=== PATIENT | male | born 1950 | race Caucasian/White ===

== ENCOUNTER 2017-12-24 10:43 | Outpatient (CLI) | payer OTHER ==
--- NOTE | 2017-12-26 13:44 | Ultrasound Report ---
Procedure Date: 12/24/2017 Accession Number: [id number] / [id number] Procedure: US - Testicle CPT Code: FULL RESULT: EXAM: Testicle DATE: 12/24/2017 12:00 PM CLINICAL HISTORY: RIGHT TESTICULAR PAIN COMPARISON: None. TECHNIQUE: Real-time scanning was performed with static images obtained, including color-flow. FINDINGS: Right: Testis: 4.2 x 2.8 x 2.6 cm. Normal size and echotexture. No mass, calcification, or abnormal blood flow. Epididymis: 1.5 x 0.9 x 0.8 cm. Normal size and echotexture. No mass or abnormal blood flow. Hydrocele: Small Varicocele: None. Left: Testis: 4.1 x 2.9 x 2.4 cm. Normal size and echotexture. No mass, calcification, or abnormal blood flow. Epididymis: 1.2 x 0.9 x 0.9 cm. There is a small left epididymal head cyst present. Hydrocele: Small Varicocele: None. IMPRESSION: Small bilateral hydroceles. No evidence of an intratesticular mass. [facility]
== END 2017-12-24 10:44 | disposition home or self-care (01) ==
LOC: DI 10:43
PROVIDERS: ATTEND Internal Medicine
DX: N43.3 Hydrocele, unspecified (principal)
CPT/HCPCS: 76870; 93975

== ENCOUNTER 2019-02-10 10:22 | Outpatient (CLI) | payer MEDICARE, OTHER ==
--- NOTE | 2019-02-11 15:49 | XRAY Report ---
Reason: CHRONIC R ANKLE PAIN Procedure Date: 02/10/2019 Accession Number: [id number] / [id number] Procedure: XR - Ankle 3 View RT CPT Code: FULL RESULT: EXAM: RIGHT ANKLE RADIOGRAPHY, 3 VIEWS EXAM DATE: 02/10/2019 10:43 AM. CLINICAL HISTORY: Chronic right ankle pain in a 69-year-old male. COMPARISON: None. TECHNIQUE: Standing AP, lateral and oblique views. FINDINGS: Bones: Minor hypertrophic changes medially and laterally. No fractures or bone lesions. Joints: Mild to moderate joint space narrowing in the ankle joint, more prominent laterally. No subluxation or joint effusion. Soft Tissues: Normal. No soft tissue swelling. 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 No acute process. RADIA
== END 2019-02-10 10:23 | disposition home or self-care (01) ==
LOC: DI 10:22
PROVIDERS: ATTEND Podiatrist
DX: M19.071 Primary osteoarthritis, right ankle and foot (principal)

== ENCOUNTER 2019-06-19 10:19 | Outpatient (CLI) | payer MEDICARE, OTHER ==
[2019-06-20 18:33] VITALS: BP 128/82
--- NOTE | 2019-06-20 18:33 | SLEEP CARE CONSULTATION ---
Information from patient questionnaire entered by Jo Ann Vera. I have reviewed and concur with the information entered by Jo Ann Vera. This document represents the service I personally performed and the decisions made by me, Dilia Mcwilliams MD, [facility]. History of Present Illness Reason for Visit: New patient, Previously diagnosed sleep apnea, sleep apnea on CPAP therapy (BIPAP) Chief Complaint: reports: Insomnia, Unrefreshed sleep, Snoring, Excessive daytime sleepiness, Observed pauses in breathing, Fatigue, Frequent awakenings at night, Other (BIPAP BROKEN) Duration of Symptoms: September 2012 Usual bedtime: 9 pm Time it takes to fall asleep: 30 mins Snores at night: Yes Observed to quit breathing while asleep: Yes Sleeps alone due to snoring: Yes Number of times waking at night: 3 Reasons for waking at night: reports: Snoring, Bathroom Toss, Turn, or Twitch while sleeping: Yes Recalls having dreams: Yes Usually gets out of bed at: 6:30 am Feels refreshed in the morning: No Morning headache: Yes (sometimes) Sleepy or fatigued during the day: Yes Ever fallen asleep while driving: No Takes day naps: Yes Dreams during day naps: No Prior sleep studies: Yes Year and Where: 2012 Additional HPI information: I had the pleasure of seeing Mr. Wellington along with his today regarding obstructive sleep apnea-hypopnea. As you know, he is a 69 year old gentleman who was diagnosed with the sleep-disordered breathing [facility] [place] in [facility]. The AHI was 44.8. He was first started on a BiPAP device. His current machine is a BiPAP ASV (S9 VPAP [employer]). He used the device only 4 times in the past 6 months. He wears a full face mask. He gets his supplies via the mail from the [facility] in [place]. He found the treatment beneficial when he used it regularly at first. - Parasomnia Symptoms Ever been unable to move upon waking from sleep: No Ever felt weak in the knees when startled or emotional: Yes Bothered by creepy, crawly, restless sensations in legs: Yes Problems with memory or concentration: Yes Subjective Initial [place] Sleepiness Scale score: 15 Past Medical History Past Medical History: reports: Hypertension, Arthritis, Anxiety, Asthma, D epression, Mood disorder, Other (COPD, PTSD, Binge eating, enlarged prostate, jaw surgery to advance mandible) Social History The patient's occupation is retired. Patient is and lives in [place]. Have you smoked in the past 12 months: No Quit date: 1968 Alcohol use: No Caffeine use: Yes Caffeine amount and frequency: 2 cups a day Family History Family history of sleep disordered breathing: Yes Family Hx Sleep Apnea: Sibling: Sleep apnea - Treated Allergies and Home Medications Drug allergies reviewed: Yes Home medication list reviewed: Yes Allergy and home medication list: Current Medications: fluoxetin, hydrochlorothiazide, loratadine, finasteride, lisinopril, vitamin D Allergies: no known drug allergies Review of Systems Cardiovascular: reports: high blood pressure, leg or foot swelling Respiratory: reports: wheeze Urinary: reports: urgency Neurological: denies: headaches, seizure, head trauma, disorientation, speech dy sfunction, gait or balance problems, fainting or unconsciousness, other Psychiatric: reports: anxiety, depression, mood disorder, other (PTSD) Ear/Nose/Throat: reports: nasal congestion, sinus problems, dry mouth/throat, tonsillectomy Endocrine: reports: sluggishness, too hot or cold, excessive thirst, increased appetite, increased urination Musculoskeletal: reports: joint pain, back pain, muscle pain or cramping Immunologic: reports: allergies to food or environment Physical Exam Vital signs obtained and entered by: Dr. Mcwilliams Blood Pressure: 128/82 Cuff size: regular Heart Rate: 66 O2 Saturation: 96 Height: 5 ft 8 in Weight: 266 lb Body Mass Index: 40.4 BMI Classification: Obesity Class 3 Neck circumference: 17.5 Mood/affect: normal HEENT: No craniofacial malformation Nostrils: patent to airflow Turbinates: normal Septum: midline Mouth and throat: narrow oropharynx Soft palate: long Hard palate: normal Uvula: normal Uvula visualization: 25% Mallampati Class III Tongue: normal in size Tonsils: absent bilaterally Chin and jaw: normal size and position Neck: normal w/o lymphadenopathy or thyromegaly Heart: regular rate and rhythm Lungs: clear bilaterally Abdomen: soft, non-tender Extremities: no edema or clubbing Neurologic: intact, no focal deficits Impression and Plan IMPRESSION: 1. Obstructive Sleep Apnea-Hypopnea Syndrome, severe, as previously diagnosed. The patient is not using the BiPAP much because the masks he has do not fit. Since [facility] the [place] [facility]. It is unclear also whether he actually need to be on a BiPAP ASV which is reserved for treatment of central and complex sleep apnea. Narrow oropharynx and obesity are common predisposing factors for obstructive sleep apnea-hypopnea syndrome. Untreated obstructive sleep apnea can also contribute to hypertension. Pathophysiology of sleep-disordered breathing was discussed. I recommend repeat the in-laboratory polysomnography and manual CPAP/BiPAP titration study. I informed the patient of what the sleep studies involve and after some discussion, he agreed to proceed. Plan: 1. Schedule polysomnography + manual CPAP/BiPAP titration study and return in 1 to weeks after the study to discuss result and initiate therapy. 2. Avoid long distance driving or when feeling sleepy. 3. Avoid alcohol, sedative and muscle relaxant around bedtime. 4. Attempt to lose weight. I spent 100% of this visit face to face with the patient with greater than 50% of this was spent time counseling the patient and coordination of care.
== END 2019-06-19 10:20 | disposition home or self-care (01) ==
LOC: SC 10:19
PROVIDERS: ATTEND Internal Medicine Pulmonary Disease
DX: G47.33 Obstructive sleep apnea (adult) (pediatric) (principal); E66.9 Obesity, unspecified; Z68.41 Body mass index [BMI] 40.0-44.9, adult
CPT/HCPCS: 99203; 99212

== ENCOUNTER 2019-06-25 19:22 | Outpatient (CLI) | payer OTHER | END 2019-06-25 19:23 | disposition home or self-care (01) | LOC: SC 19:22 | PROVIDERS: ATTEND Internal Medicine Pulmonary Disease | DX: G47.33 Obstructive sleep apnea (adult) (pediatric) (principal); G47.61 Periodic limb movement disorder | CPT/HCPCS: 95810 ==

== ENCOUNTER 2019-07-03 10:41 | Outpatient (CLI) | payer OTHER ==
[2019-07-03 11:46] VITALS: BP 120/68
--- NOTE | 2019-07-03 11:46 | SLEEP CARE CONSULTATION ---
Information from patient questionnaire entered by Jo Ann Vera. I have reviewed and concur with the information entered by Jo Ann Vera. This document represents the service I personally performed and the decisions made by me, Torie Marshall, RN, MSN, [employer]. History of Present Illness Accompanied by: Spouse Initial [place] Sleepiness Scale score: 15 Current [place] Sleepiness Scale score: 15 Additional HPI information: JOANNA HERRERA returns with spouse for follow up and results of the recently performed polysomnography. I explained the pathophysiology behind obstructive sleep apnea. We then spent quite a bit of time discussing different treatment options. For mild obstructive sleep apnea, surgery and oral appliance are alternatives to nasal CPAP therapy but in moderate or severe cases, nasal CPAP is the most effective and reliable treatment. I reviewed the impact of weight changes on sleep apnea and strongly recommended losing weight. After some discussion, the patient opted to go with the nasal CPAP therapy. Since he has a major ankle surgery scheduled 07-18-19, I will place order urgent set up. After some discussion, the patient decided to use Medicare insurance with [employer] to get supplies as [facility]. He was using a BiPAP ASV but was heavier when first diagnosed. Currently cannot use his BiPAP due to mask not fitting well, and pressure discomfort. It is over 5 years old and can be updated. Nasal autoCPAP set at [id number] will be ordered with rationale explained. A manual titration study will be ordered if unable to find optimal pressure with office adjustments. I explained how CPAP machine works with sample devices RespirVentives Dreamstation and Resnorin.tv [id number] and what to expect when using the machine. Using CPAP every night in order to get used to it was emphasized. Patient advised to put CPAP mask on before getting into bed so as not to fall asleep without CPAP. To assist acclimation to CPAP use, it could also be used for a short time during day while reading or watching TV. The patient was instructed to call the CPAP supplier to discuss any mechanical problem that may occur. If the mask given is uncomfortable or is difficult to keep on through the night even with adjustment, contact the CPAP supplier as many will replace with another mask style if notified before 30 days. If snoring or perceives is not getting enough air or too much air from the machine, notify this office. [facility] patient education PAP tips reviewed and given to patient. Patient counseled not drink alcohol less than 4 hours before bedtime as it can increase snoring and apnea. Patient was cautioned about risks of drowsy driving until sleepiness symptoms resolve. Patient denies drowsy driving. [facility] patient education on snoring and sleep apnea given and reviewed. Sleep Study - Results Polysomnography/Home Sleep Study results: The quality of the study is good. The patient had normal sleep efficiency. The sleep architecture was abnormal for sleep fragmentation and reduced amount of time spent in REM sleep. Respiratory monitoring showed moderate obstructive sleep apnea-hypopnea (AHI = 19.9) associated with frequent arousals, oxyhemoglobin desaturation and mild hypoxia (hayes oxygen saturation of 83%). The respiratory events occurred more frequently during supine sleep (supine AHI = 36.7; non-supine = 16.94). Snore was loud in intensity. There was severe periodic leg movement of sleep contributing to the sleep fragmentation. Cardiac rhythm was normal sinus rhythm without significant arrhythmia. No abnormal behavior (parasomnia) observed during the night. Allergies and Home Medications Known drug allergies: Yes (squid ) Home medication list reviewed: Yes (list given ) Allergy and home medication list: Fluoxetine 20mg bid Aspirin 81mg daily AM hydrochlorthiazide 25mg daily AM loratadine 10mg daily AM Finasteride 5mg daily PM Atorvastatin 40mg daily PM Vitamin D3 2000 units daily PM Lisinopril 10mg 1/2 tab daily PM Review of Systems Review of systems same as previous: Yes Physical Exam Blood Pressure: 120/68 Cuff size: long Heart Rate: 63 O2 Saturation: 97 Height: 5 ft 9 in Weight: 270 lb 6.4 oz Body Mass Index: 39.9 BMI Classification: Obesity Class 2 Impression and Plan 1. Obstructive Sleep Apnea-Hypopnea Syndrome, moderate, with lowest oxygen saturation of 83%. Obviously this is the cause of the patients symptoms of unrefreshed sleep, and excessive daytime sleepiness. Positive pressure therapy could benefit his hypertension and PTSD. As mentioned above, the patient will be started on nasal autoCPAP therapy with pressure set at 4-15 cmH2O. An urgent request for set up was made due to upcoming surgery. He has an old BiPAP ASV that is over 5 years old and pressure uncomfortable. Plus this type of PAP mode is generally used for central or complex apnea not his current diagnosis of obstructive apnea. A manual titration study will be completed if unable to find optimal treatment pressure with office adjustments. Compliance guidelines also reviewed. A copy of compliance guidelines will be given for reference at check out. Because the apnea is more severe supine, I instructed to avoid sleeping supine using pillow positioning until able to start CPAP use. 2. Periodic limb movement, severe, that did fragment patients sleep. Periodic limb movement of sleep (PLMS) is characterized by episodes of repetitive limb movements that occur during sleep and usually involve the lower limbs. The e tiology is unknown but can be associated with restless leg syndrome (RLS), neuropathy, spinal cord diseases, kidney disease, rheumatological disorders, narcolepsy, obstructive sleep apnea, and REM sleep behavior disorder. Other factors that can increase PLMS and/or RLS are heredity and iron deficiency as reflected by a low serum ferritin level below 50 to 75mcg / L. Several medications can precipitate or aggravate PLMS such as selective serotonin re- uptake inhibitor antidepressants, tricyclic antidepressants, lithium, and dopamine receptor antagonists with the exception of bupropion. Caffeine can also aggravate PLMS and should be avoided. Sleep hygiene methods can also improve sleep as well as lifestyle changes such as regular exercise. Patient was advised further evaluation is indicated. Perhaps it is due to current ankle pain. * UPdate PAP to Nasal auto CPAP therapy, pressure at 4-15 cm H2O. * Mask refitting * Attempt to lose weight. * Avoid alcohol consumption near bedtime. * Avoid supine sleep until using CPAP. * The patient is again cautioned about driving until sleepiness completely resolves. * Follow up with PCP for further evaluation of PLMS if still present after ankle recovery. * Return one month after CPAP obtained. I will assess response to therapy and compliance at that time. Time Spent with Patient (minutes): 33 I spent 100% of this visit face to face with the patient with greater than 50% of this was spent time counseling the patient and coordination of care.
== END 2019-07-03 10:42 | disposition home or self-care (01) ==
LOC: SC 10:41
PROVIDERS: ATTEND Nurse Practitioner Family
DX: G47.33 Obstructive sleep apnea (adult) (pediatric) (principal); G47.61 Periodic limb movement disorder; E66.9 Obesity, unspecified; Z68.39 Body mass index [BMI] 39.0-39.9, adult
CPT/HCPCS: 99212; 99214

== ENCOUNTER 2019-10-30 16:50 | Outpatient (CLI) | payer MEDICARE, OTHER ==
--- NOTE | 2019-10-30 09:30 | SLEEP CARE CONSULTATION ---
Information from patient questionnaire entered by Caryn Resendez. I have reviewed and concur with the information entered by Caryn Resendez. This document represents the service I personally performed and the decisions made by me, Torie Marshall, RN, MSN, MARK[employer]PERATIONS CONSULTANT. History of Present Illness Service Date and Time: 10/30/2019 1650 Previous diagnosis: Moderate, Obstructive Sleep Apnea-Hypopnea Syndrome AHI: 19.9 Reason for follow up: other (2 month with pressure change) Equipment type: CPAP Equipment obtained from: [facility] Mask style: Nasal Backup mask available: Yes (old mask) Last cushion change: 1 month ago HPI additional information: the first pressure change of [id number] was uncomfortable so reduced to [id number]. This is comfortable. He also raised the head of bed about 30 degrees to assist to keep mask sealed. He has been sleeping longer about 6-8 hours since then. He is also able to sleep on is side when needed with a better seal. He tried a CPAP pillow in the past in [place]. CPAP Compliance Data - Data Reviewed with Patient Average duration of nightly device use: 6h 36m Compliance rate %: 97 Current pressure setting (cmH2O): 10-16 Humidity setting: ? Heated hose setting: ? Average residual AHI: 5.3 Central apnea: 1.9 Obstructive apnea: 2.3 Hypopnea: 0.2 Average large leak: 8.5 liters per minute Subjective Patient concerns: denies: aerophagia, mask discomfort, air blowing in eyes, mask leak noise, condensation in mask/hose, nasal congestion, dry mouth, nose, throat, epistaxis, other Observed to snore while using device: No Current pressure setting perceived as: comfortable On therapy, patient: reports: sleeping better, awakening more refreshed, being m ore awake and alert during the day, more rested overall, other (nap stills but not with CPAP usually for about a half. ). denies: drowsiness while driving Initial [place] Sleepiness Scale score: 15 Physical Exam Height: 5 ft 9 in Weight: 276 lb (home weight) Body Mass Index: 40.7 BMI Classification: Morbidly Obese Impression and Plan 1. Obstructive Sleep Apnea-Hypopnea Syndrome, moderate, with excellent treatment compliance and good apnea control with only slightly elevation of residual AHI. On CPAP therapy, the patient has better sleep quality and is more rested overall. He is pleased with benefit of CPAP use and recently ordered new supplies after going through 2 numbers given. The residual AHI has reduced from 7.3 to 5.3 with current pressure. It appears this residual is related to mask leaks that could be reduced with a better seal by replacing mask cushions every 2 weeks rather than every month. Higher pressure range tried also uncomfortable so pressure will not be increased. Since he has gained a few pounds and now is morbidly obese, I advied patient of health risks associated with morbid obesity and to lose weight. He is to follow up with his PCP to discuss a diet consultation. until then he is to reduce portions of healthy content and to eat slower to assist weight loss. Patient agreed with plan. I also discussed how weight affects his apnea risk and PAP pressure requirements and symptoms to report for pressure change. Patient's apnea severity and rationale for treatment to reduce apnea, improve sleep quality and reduce cardiovascular and cerebrovascular events was reviewed. He was advised to use CPAP with all sleep including naps. * Continue auto CPAP pressure at 10-15 cmH2O * Notify me if snoring with mask or feeling that the pressure is too much or too little * Use CPAP with all sleep * Attempt to lose weight * Follow up with PCP to discuss weight loss / manager stylist referral * Call this office if any problems using CPAP * Return for follow up in 6 months , or sooner if concerns arise 5 Visit Type: Telehealth Phone (to reduce risk of Covid 19 risk) Patient Location: Home Location of Provider: Home Patient agrees and consents to this telehealth visit type: Yes Patient agrees to have their insurance billed: Yes Time Spent with Patient (minutes): 10 Provider Statement: I spent 100% of the Telehealth Phone Call with the patient with greater than 50% spent counseling the patient and coordination of care.
== END 2019-10-30 16:51 | disposition home or self-care (01) ==
LOC: SC 16:50
PROVIDERS: ATTEND Nurse Practitioner Family
DX: G47.33 Obstructive sleep apnea (adult) (pediatric) (principal); E66.01 Morbid (severe) obesity due to excess calories; Z68.41 Body mass index [BMI] 40.0-44.9, adult

== ENCOUNTER 2020-05-01 09:58 | Outpatient (CLI) | payer MEDICARE, OTHER ==
--- NOTE | 2020-05-01 10:36 | SLEEP CARE CONSULTATION ---
Information from patient questionnaire entered by Jo Ann Vera. I have reviewed and concur with the information entered by Jo Ann Vera. This document represents the service I personally performed and the decisions made by , Carmella Cyr ARNP. History of Present Illness Service Date and Time: 05/01/2020 0958 Previous diagnosis: Moderate, Obstructive Sleep Apnea-Hypopnea Syndrome AHI: 19.9 (in 2019) Reason for follow up: six month Equipment type: CPAP Equipment obtained from: [facility] (getting supplies as needed) Mask style: Nasal pillows Backup mask available: Yes (old mask) Last cushion change: 1 week Prior sleep studies: Yes Year and Where: 2019 - [facility] Type of Sleep Study: Polysomnography HPI additional information: JOANNA HERRERA was diagnosed to have moderate, AHI 19.9, obstructive sleep apnea- hypopnea syndrome and returned today for CPAP therapy six month follow-up. CPAP Compliance Data - Data Reviewed with Patient Average duration of nightly device use: 6.55 Compliance rate %: 84 (180 days) Current pressure setting (cmH2O): 10-16 Humidity settin Average residual AHI: 4.2 Central apnea: 0.9 Obstructive apnea: 2.3 Subjective Patient concerns: reports: condensation in mask/hose (getting fluid after 4 hours of sleeping into mask), other (water from tank comes out through pillows after 4 hours of use). denies: aerophagia, mask discomfort, air blowing in eyes, mask leak noise, nasal congestion, dry mouth, nose, throat, epistaxis Observed to snore while using device: No Current pressure setting perceived as: comfortable On therapy, patient: reports: sleeping better, awakening more refreshed, being more awake and alert during the day, more rested overall. denies: drowsiness while driving Initial [place] Sleepiness Scale score: 15 (in 2019) Current [place] Sleepiness Scale score: 13 Allergies and Home Medications Known drug allergies: No (allergy to squid) Drug allergies reviewed: Yes (NKDA) Home medication list reviewed: Yes (no changes) Review of Systems Review of systems same as previous: No (Right ankle surgery 2019) Physical Exam Heart Rate: 69 O2 Saturation: 95 Height: 5 ft 9 in Weight: 285 lb Body Mass Index: 42.0 BMI Classification: Morbidly Obese Impression and Plan 1. Obstructive Sleep Apnea-Hypopnea Syndrome, moderate, with good treatment compliance and good apnea control. On CPAP therapy, the patient has better sleep quality and is more rested overall. He has had condensation buildup after 4 hours of CPAP use that splashes on face and wakes him up. I he has more than 4 hours of sleep he will not use the CPAP for rest of night. His humidity setting is at 8 and I instructed him to reduce the setting to 5 as this should reduce the condensation. If more is needed he may increase his heated hose setting as needed. He voiced understanding. Patient has gained weight. Currently patients BMI is 40.7. Obesity increases the risk of apnea, CPAP pressure requirements and overall health risks especially cardiovascular and diabetes. Thus patient is advised to try to lose weight. Weight loss can be done with reducing portion si ze, reducing refined foods and balancing content with vegetables, fruit and protein. The BMI chart was reviewed. The patient would like to reduce to 20 pounds. He was able to lose about 100 pound when he worked with a piecer up on his diet and was encouraged to follow those previous measures to help him lose weight again. Patient's apnea severity and rationale for treatment to reduce apnea, improve sleep quality and reduce cardiovascular and cerebrovascular events was reviewed. I also reviewed the benefit of consistent device use of CPAP for hypertension, and depression/anxiety. * Continue auto CPAP pressure at 10-16 cmH2O * Notify me if snoring with mask or feeling that the pressure is too much or too little * Attempt to lose weight * Call this office if any problems using CPAP * Return for follow up in 1 year, or sooner if concerns arise Counseling Topics: Spare mask, Weight loss health impact Visit Type: In Office Time Spent with Patient (minutes): 21 Provider Statement: I spent 100% of the Face to Face Visit with the patient with greater than 50% spent counseling the patient and coordination of care.
== END 2020-05-01 09:59 | disposition home or self-care (01) ==
LOC: SC 09:58
PROVIDERS: ATTEND Nurse Practitioner Family
DX: G47.33 Obstructive sleep apnea (adult) (pediatric) (principal); E66.01 Morbid (severe) obesity due to excess calories; Z68.41 Body mass index [BMI] 40.0-44.9, adult
CPT/HCPCS: 99212; G0463

== ENCOUNTER 2021-06-11 08:42 | Outpatient (CLI) | payer MEDICARE, OTHER ==
--- NOTE | 2021-06-11 09:29 | SLEEP CARE CONSULTATION ---
Information from patient questionnaire entered by Flora Webb MA. I have reviewed and concur with the information entered by Flora Webb MA. This document represents the service I personally performed and the decisions made by , Carmella Cyr ARNP. History of Present Illness Service Date and Time: 06/11/2021 0842 Previous diagnosis: Moderate, Obstructive Sleep Apnea-Hypopnea Syndrome AHI: 19.9 (in 2019) Reason for follow up: annual Accompanied by: Spouse Equipment type: CPAP Equipment obtained from: [employer] (getting supplies as needed) Mask style: Nasal pillows Backup mask available: Yes (old mask) Last cushion change: 1 month Prior sleep studies: Yes Year and Where: 2018 - [facility] Type of Sleep Study: Polysomnography HPI additional information: JOANNA HERRERA was diagnosed to have moderate, AHI 19.9, obstructive sleep apnea- hypopnea syndrome and returned today with spouse for CPAP therapy annual follow- up. Sleep Study - Results Type of Sleep Study: Polysomnography Prior sleep studies: Yes Year and Where: 2018 - [facility] CPAP Compliance Data - Data Reviewed with Patient Average duration of nightly device use: 6 hours 53 minutes Compliance rate %: 85 Current pressure setting (cmH2O): 10-16 Average residual AHI: 4.8 Central apnea: 1.4 Obstructive apnea: 2.5 Subjective Patient concerns: denies: aerophagia, mask discomfort, air blowing in eyes, mask leak noise, condensation in mask/hose, nasal congestion, dry mouth, nose, throat, epistaxis, other Observed to snore while using device: No Current pressure setting perceived as: comfortable On therapy, patient: reports: sleeping better, awakening more refreshed, being more awake and alert during the day, more rested overall. denies: drowsiness while driving Initial [place] Sleepiness Scale score: 15 (in 2018) Current [place] Sleepiness Scale score: 11 (2020) Allergies and Home Medications Home medication list reviewed: Yes (no changes) Review of Systems Review of systems same as previous: No (cataract surgery May 19 and Jun 02) Physical Exam Vital signs obtained and entered by: Lorin WEBB CMA AAMA Blood Pressure: 155/100 (left, retake 145/97) Cuff size: wrist Heart Rate: 82 O2 Saturation: 97 (mask) Height: 5 ft 9 in Weight: 290 lb (with clothes) Weight change since last visit: 5 pound gain Body Mass Index: 42.8 BMI Classification: Morbidly Obese Impression and Plan 1. Obstructive Sleep Apnea-Hypopnea Syndrome, moderate, with good treatment compliance and good apnea control. On CPAP therapy, the patient has better sleep quality and is more rested overall. Patient is satisfied with current CPAP therapy and has significant improvement of his sleep apnea. He has no concerns or complaints with mask use. Patient has gained 5 pounds since his last visit. Patient was encouraged to try to lose weight. Patient's apnea severity and rationale for treatment to reduce apnea, improve sleep quality and reduce cardiovascular and cerebrovascular events was reviewed. I also reviewed the benefit of consistent device use of CPAP for hypertension, depression and anxiety. * Continue auto CPAP pressure at 10-16 cmH2O * Notify me if snoring with mask or feeling that the pressure is too much or too little * Attempt to lose weight * Call this office if any problems using CPAP * Return for follow up in 1 year, or sooner if concerns arise Counseling Topics: Spare mask, Weight loss health impact Visit Type: In Office Time Spent with Patient (minutes): 15 Provider Statement: I spent 100% of the Face to Face Visit with the patient with greater than 50% spent counseling the patient and coordination of care.
[2021-06-11 09:30] VITALS: BP 155/100
== END 2021-06-11 08:43 | disposition home or self-care (01) ==
LOC: SC 08:42
PROVIDERS: ATTEND Nurse Practitioner Family
DX: G47.33 Obstructive sleep apnea (adult) (pediatric) (principal); E66.01 Morbid (severe) obesity due to excess calories; Z68.41 Body mass index [BMI] 40.0-44.9, adult
CPT/HCPCS: 99212; G0463

== ENCOUNTER 2022-07-29 14:30 | Outpatient (CLI) | payer MEDICARE, OTHER ==
--- NOTE | 2022-07-29 15:33 | SLEEP CARE CONSULTATION ---
Information from patient questionnaire entered by Valeria Perez. I have reviewed and concur with the information entered by Valeria Perez. This document represents the service I personally performed and the decisions made by me, Carmella Cyr ARNP. History of Present Illness Service Date and Time: 07/29/2022 1430 Previous diagnosis: Moderate, Obstructive Sleep Apnea-Hypopnea Syndrome AHI: 19.9 (in 2018) Reason for follow up: annual (LAST SEEN 05/2021) Accompanied by: Spouse (Karrie) Equipment type: CPAP (RESMED Airsense 10 s/u 06/2019) Equipment obtained from: [employer] (getting supplies as needed) Mask style: Nasal pillows Backup mask available: No (waiting on supplies; will keep old mask when replaced) Last cushion change: yesterday Prior sleep studies: Yes Year and Where: 2018 - [facility] Type of Sleep Study: Polysomnography HPI additional information: JOANNA HERRERA was diagnosed to have moderate, AHI 19.9, obstructive sleep apnea- hypopnea syndrome and returned with spouse today for CPAP therapy annual follow- up. Sleep Study - Results Type of Sleep Study: Polysomnography Prior [facility]: Yes [facility] Compliance Data - Data Reviewed with Patient Average duration of nightly device use: 8 HRS 25 MIN Compliance rate %: 96 (-07/27/22; 179/180 days used) Current pressure setting (cmH2O): 10-16 (median 11.2, avg 13.3, max 14.4) Average residual AHI: 6.1 Central apnea: 1.7 Obstructive apnea: 3.0 Hypopnea: 0.6 Subjective Missed days of use due to: reports: illness Patient concerns: denies: aerophagia, mask discomfort, air blowing in eyes, mask leak noise, condensation in mask/hose, nasal congestion, dry mouth, nose, throat, epistaxis Observed to snore while using device: Yes (sometimes) Current pressure setting perceived as: comfortable On therapy, patient: reports: sleeping better, awakening more refreshed, being more awake and alert during the day, more rested overall. denies: drowsiness while driving Initial [place] Sleepiness Scale score: 15 (in 2019) Current [place] Sleepiness Scale score: 7 (LEFT ARM) Allergies and Home Medications Drug allergies reviewed: Yes (NKDA) Home medication list reviewed: Yes (no changes) Review of Systems Review of systems same as previous: No (Bronchitis, may be chronic; being looked at) Physical Exam Vital signs obtained and entered by: VALERIA Soria MA Blood Pressure: 130/72 (LEFT ARM) Cuff size: long Heart Rate: 70 O2 Saturation: 94 Height: 5 ft 9 in Weight: 297 lb Body Mass Index: 43.8 BMI Classification: Morbidly Obese Impression and Plan 1. Obstructive Sleep Apnea-Hypopnea Syndrome, moderate, with good treatment compliance and fair apnea control with mildly elevated residual AHI. On CPAP therapy, the patient has better sleep quality and is more rested overall. The patients pressure will be changed to autoCPAP 12-16 cmH20 for elevation of residual AHI. Patient advised to contact me if pressure change is uncomfortable so that it can be adjusted. Goals for apnea control discussed. Patient has significant improvement of their sleep apnea and are satisfied with current CPAP therapy. Patient denies problems with oral dryness, nasal congestion, epistaxis, skin irritation or aerophagia. Patient's apnea severity and rationale for treatment to reduce apnea, improve sleep quality and reduce cardiovascular and cerebrovascular events was reviewed. I also reviewed the benefit of consistent device use of CPAP for hypertension, depression and anxiety. 2. Obesity, unspecified. Currently patients BMI is 43.8. Patient has tried to lose weight but he is unable to walk very far due to his health. I encouraged him to concentrating on eating healthy diet and getting what regular exercise he can tolerate. He voiced understanding and agreement. Obesity increases the risk of apnea, CPAP pressure requirements and overall health risks especially cardiovascular and diabetes. Thus patient is advised to lose weight. * Change auto CPAP pressure to 12-16 cmH2O * Update supplies * Notify me if snoring with mask or feeling that the pressure is too much or too little * Attempt to lose weight * Call this office if any problems using CPAP * Return for follow up in 1 year, or sooner if concerns arise Counseling Topics: Spare mask, Weight loss health impact Visit Type: In Office Other Participants: Spouse/Significant Other Time Spent with Patient (minutes): 20 Provider Statement: I spent 100% of the Face to Face Visit with the patient with greater than 50% spent counseling the patient and coordination of care.
[2022-07-29 15:34] VITALS: BP 130/72
== END 2022-07-29 14:31 | disposition home or self-care (01) ==
LOC: SC 14:30
PROVIDERS: ATTEND Nurse Practitioner Family
DX: G47.33 Obstructive sleep apnea (adult) (pediatric) (principal); E66.01 Morbid (severe) obesity due to excess calories; Z68.41 Body mass index [BMI] 40.0-44.9, adult
CPT/HCPCS: 99213; G0463; 99212

== ENCOUNTER 2023-07-29 10:21 | Outpatient (CLI) | payer MEDICARE, OTHER ==
--- NOTE | 2023-07-29 11:02 | Sleep Patient Instructions ---
Sleep Center Visit Summary - Patient Visit Information Reason for Visit: Annual visit - Patient Instructions Additional Instructions: You will continue with CPAP therapy with pressure set at 12-16 cmH2O. A supply prescription will be updated with your DME. We encourage you to continue to try to lose weight. Please follow up with the sleep care office in 1 year. - Clinic Information Contact: [facility] [address] [place] [address] [email or web address] T: [phone]
--- NOTE | 2023-07-29 11:04 | SLEEP CARE CONSULTATION ---
Information from patient questionnaire entered by Valeria Perez. I have reviewed and concur with the information entered by Valeria Perez. This document represents the service I personally performed and the decisions made by , Carmella Cyr ARNP. History of Present Illness Service Date and Time: 07/29/2023 1021 Previous diagnosis: Moderate, Obstructive Sleep Apnea-Hypopnea Syndrome AHI: 19.9 (in 2018) Reason for follow up: annual (LAST SEEN 07/2022) Equipment type: CPAP (RESMED Airsense 10 s/u 06/2019) Equipment obtained from: [employer] (getting supplies as needed) Mask style: Nasal pillows (medium cushion) Backup mask available: Yes Last cushion change: Wednesday Prior [facility]: Yes [facility] Type of Sleep Study: Polysomnography HPI additional information: JOANNA HERRERA was diagnosed to have moderate, AHI 19.9, obstructive sleep apnea- hypopnea syndrome and returned today for CPAP therapy annual follow-up. Sleep Study - Results Type of Sleep Study: Polysomnography Prior sleep studies: Yes Year and Where: 2018 - [facility] CPAP Compliance Data - Data Reviewed with Patient Average duration of nightly device use: 8 HRS 21 MINS Compliance rate %: 97 (07/27/22-07/26/23; 363/365 days used) Current pressure setting (cmH2O): 12-16 (95% avg 14) Average residual AHI: 5.2 Central apnea: 2.5 Obstructive apnea: 1.5 Average large leak: 8.5 L/min Subjective Patient concerns: reports: dry mouth, nose, throat (dry mouth occasionally). denies: aerophagia, mask discomfort, air blowing in eyes, mask leak noise, condensation in mask/hose, nasal congestion, epistaxis Observed to snore while using device: No Current pressure setting perceived as: comfortable On therapy, patient: reports: sleeping better, awakening more refreshed, being more awake and alert during the day, more rested overall. denies: drowsiness while driving Initial [place] Sleepiness Scale score: 15 (in 2019) Current [place] Sleepiness Scale score: 14 Allergies and Home Medications Drug allergies reviewed: Yes Home medication list reviewed: Yes (no changes) Review of Systems Review of systems same as previous: Yes (no changes) Physical Exam Vital signs obtained and entered by: VJ SHULTZ Blood Pressure: 143/81 Cuff size: regular (right arm) Heart Rate: 69 O2 Saturation: 97 Height: 5 ft 9 in Weight: 284 lb 9.6 oz Weight change since last visit: 13 lbs loss Body Mass Index: 42.0 BMI Classification: Morbidly Obese Impression and Plan 1. Obstructive Sleep Apnea-Hypopnea Syndrome, moderate, with good treatment compliance and good apnea control with minimal elevation of residual AHI. On CPAP therapy, the patient has better sleep quality and is more rested overall. Patient has significant improvement of their sleep apnea although the current pressure is minimally ineffective. I will not make any changes today. He is satisfied with current CPAP therapy. Patient's apnea severity and rationale for treatment to reduce apnea, improve sleep quality and reduce cardiovascular and cerebrovascular events was reviewed. I also reviewed the benefit of consistent device use of CPAP for hypertension, depression and anxiety. 2. Obesity, unspecified. Currently patients BMI is 42. He has lost weight, 13 pounds. He is using [employer]. Obesity increases the risk of apnea, CPAP pressure requirements and overall health risks especially cardiovascular and diabetes. Thus patient is advised to continue to try to lose weight. * Continue auto CPAP pressure at 12-16 cmH2O * Update supply prescription * Notify me if snoring with mask or feeling that the pressure is too much or too little * Attempt to lose weight * Call this office if any problems using CPAP * Return for follow up in 12 months, or sooner if concerns arise Counseling Topics: Spare mask, Weight loss health impact Prescriptions: Device supplies Follow up with Sleep Care in: 1 year Visit Type: In Office Time Spent with Patient (minutes): 20 Provider Statement: I spent 100% of the Face to Face Visit with the patient with greater than 50% spent counseling the patient and coordination of care.
[2023-07-29 11:05] VITALS: BP 143/81; O2SAT 97
== END 2023-07-29 10:22 | disposition home or self-care (01) ==
LOC: SC 10:21
PROVIDERS: ATTEND Nurse Practitioner Family
DX: G47.33 Obstructive sleep apnea (adult) (pediatric) (principal); E66.01 Morbid (severe) obesity due to excess calories; Z68.41 Body mass index [BMI] 40.0-44.9, adult
CPT/HCPCS: 99213; G0463; 99212